=== PATIENT | male | born 1975 | race Caucasian/White ===

== ENCOUNTER → 2016-06-19 | Outpatient (CLI) | payer MEDICAID ==
[~2016-06-19] MED LIST: Hydroxyzine10 MG PO; POTASSIUM CHLO10 ME3 PO; PREDNISONE 20MG20 MG PO
--- NOTE | 2016-06-19 14:35 | RADIOLOGY REPORT PS360 ---
ORBIT HISTORY: History of metallic foreign body in the eyes. 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 IMPRESSION: No radio opaque orbital foreign body identified
--- NOTE | 2016-06-20 13:58 | RADIOLOGY REPORT PS360 ---
MRI-LOW EXT ANY JOINT W/O-RT HISTORY: Lateral sided right knee pain, pain when bending, limited range of motion OLD TEAR OF LATERAL MENISCUS OF RIGHT KNEE ORDERING PHYSICIAN: Haroldo French MD PATIENT AGE: 40 years COMPARISON: Radiograph 06/01/2016 TECHNIQUE: Standard multiplanar multiecho sequences are performed without contrast. FINDINGS: The cruciate ligaments are intact. The collateral ligaments, patellar tendon, and quadriceps tendon are intact. No meniscal tear apparent. There is some grade 2 signal intensity in the posterior horn of the medial meniscus but does not extend to an articular surface and does not meet strict MRI criteria for meniscal tear. No bone bruise. The joint spaces are well-preserved. The patellar cartilage is well preserved. There is a small knee joint effusion with a small Lezama's cyst 2.8 cm cephalad to caudad and 1.2 cm AP IMPRESSION: 1. No evidence of internal derangement. 2. Small knee joint effusion with small Lezama's cyst
== END ==
LOC: RAD 10:18
DX: M23.200 Derangement of unspecified lateral meniscus due to old tear or injury, right knee (principal); H05.53 Retained (old) foreign body following penetrating wound of bilateral orbits

== ENCOUNTER → 2016-09-27 | Outpatient (CLI) | payer MEDICAID ==
[2016-09-30 18:36] LABS: Neisseria gonorrhoeae, NAA Negative (Negative)
== END ==
LOC: LAB 16:11
PROVIDERS: Emergency Medicine
DX: R30.0 Dysuria (principal)